=== PATIENT | male | born 1970 | race Caucasian/White ===

== ENCOUNTER → 2017-06-07 | Outpatient (CLI) | payer OTHER ==
[~2017-06-07] MED LIST: ASPIRIN 81MG TA81 MG PO; CARVEDILOL3.125 M1 PO; CRESTOR5 MG PO
--- NOTE | 2017-06-07 09:58 | RADIOLOGY REPORT PS360 ---
ANKLE-RT-3 VIEWS HISTORY: INJURY, PAIN RT ANKLE/FOOT ORDERING PHYSICIAN: Taylor Reyes APRN PATIENT AGE: 47 years COMPARISON: None FINDINGS: No fracture or dislocation. No lytic or blastic change. There is normal mineralization.. The joint spaces are well-preserved. No significant degenerative/arthritic changes. No erosive changes evident. There are minimal hypertrophic changes of the intradistal tibia IMPRESSION: No acute finding
--- NOTE | 2017-06-07 09:59 | RADIOLOGY REPORT PS360 ---
FOOT-RT-3 VIEWS HISTORY: Pain following injury INJURY, PAIN RT ANKLE/FOOT ORDERING PHYSICIAN: Taylor Reyes APRN PATIENT AGE: 47 years COMPARISON: None FINDINGS: No fracture or dislocation. No lytic or blastic change. There is normal mineralization.. The joint spaces are well-preserved. No significant degenerative/arthritic changes. No erosive changes evident. IMPRESSION: Negative, no acute finding
== END ==
LOC: RAD 08:56
DX: S99.921A Unspecified injury of right foot, initial encounter (principal); M25.571 Pain in right ankle and joints of right foot